=== PATIENT | female | born 1995 | race African-American/Black ===

== ENCOUNTER 2021-01-25 09:27 | Emergency (ER) | payer BC, SELFPAY ==
[2021-01-25] MEDS ORDERED: Bupivacaine PF 0.5% 30 ML VIAL ONE (10:02)
[2021-01-25] MEDS ORDERED: Lidocaine 1% w/Epinephrine 1:100K 20 ML VIAL ONE (10:02)
[2021-01-25] MEDS ORDERED: Fentanyl 100 MCG/2 ML VIAL ONE (10:24)
[2021-01-25] MEDS ORDERED: Ondansetron PF 4 MG/2 ML Vial ONE (10:47)
== END 2021-01-25 13:01 | disposition home or self-care (01) ==
LOC: CSHERS 09:27
DX: L02.412 Cutaneous abscess of left axilla (principal); L73.2 Hidradenitis suppurativa; J45.909 Unspecified asthma, uncomplicated
CPT/HCPCS: 10060; 96374; 96375; J2405; J3010; S0020